=== PATIENT | female | born 1995 | race Caucasian/White ===

== ENCOUNTER 2018-09-12 23:10 | Emergency (ER) | payer BC, OTHER ==
[2018-09-13] MEDS: IBUPROFEN 800 MG TAB PO (03:07)
== END 2018-09-13 03:59 | disposition home or self-care (01) ==
LOC: FTE 23:10
DX: N75.1 Abscess of Bartholin's gland (principal); F17.210 Nicotine dependence, cigarettes, uncomplicated
CPT/HCPCS: 99283; Z7610